=== PATIENT | male | born 1950 | race African-American/Black ===

== ENCOUNTER → 2018-07-29 | Outpatient (CLI) | payer MEDICARE ==
--- NOTE | 2018-07-29 20:59 | XCELERA REPORT ---
[address] [address] Transthoracic Echocardiogram Report Name: ALISTAIR JONES I Age: 68 yrs Gender: Male : 1950 Patient Status: Outpatient Patient Location: [facility] Study Date: 07/29/2018 12:52 PM Height: 71 in Weight: 250 lb BSA: 2.3 m2 Procedure: A two-dimensional transthoracic echocardiogram with color flow and Doppler was performed. The study was technically limited with all images being suboptimal in quality. Reason For Study: CHF History: CHF. Ordering Physician: LAURA FAIRCHILD Performed By: Stacey Mann Interpretation Summary The left ventricle is normal in size. There is normal left ventricular wall thickness. LV EF is Greater than 65% The left ventricular ejection fraction is within normal limits. Doppler measurements suggest normal left ventricular diastolic function The left ventricular wall motion is normal. There is no thrombus. No defenite ASD , VSD ,o PFO seen. Grossly normal size and function. The right atrium is normal. The left atrium is mildly dilated. There is no evidence of mitral valve prolapse. There is no vegetation seen on the mitral valve. There is no mitral valve stenosis. There is no mitral regurgitation noted. There is no aortic valvular vegetation. There is no aortic valve stenosis There is no LVOT obstruction. No aortic regurgitation is present. There is no tricuspid stenosis. No tricuspid regurgitation. Unable to clculate RVSP due to lack of TR jet. There is no pulmonic valvular stenosis. There is no pulmonic valvular regurgitation. The aortic root is normal size. There is no pericardial effusion. MMode/2D Measurements & Calculations RVDd: 2.7 cm LVIDd: 4.7 cm FS: 37.4 % Ao root diam: 2.6 cm IVSd: 1.0 cm LVIDs: 2.9 cm EDV(Teich): 102.7 ml Ao root area: 5.2 cm2 LVPWd: 1.0 cm ESV(Teich): 33.4 ml LA dimension: 4.2 cm EF(Teich): 67.4 % Doppler Measurements & Calculations MV E max marjorie: MV P1/2t max marjorie: Ao V2 max: LV V1 max P.5 cm/sec 80.6 cm/sec 143.5 cm/sec 5.4 mmHg MV A max marjorie: MV P1/2t: 63.9 msec Ao max PG: LV V1 max: 71.3 cm/sec MVA(P1/2t): 3.4 cm2 8.2 mmHg 115.7 cm/sec MV E/A: 1.1 MV dec slope: 369.3 cm/sec2 MV dec time: 0.21 sec PA V2 max: MV P1/2t-pr_phl: 119.0 cm/sec 63.9 msec PA max P.7 mmHg Left Ventricle The left ventricle is normal in size. There is normal left ventricular wall thickness. LV EF is Greater than 65%. The left ventricular ejection fraction is within normal limits. Doppler measurements suggest normal left ventricular diastolic function. The left ventricular wall motion is normal. There is no thrombus. No defenite ASD , VSD ,o PFO seen. Right Ventricle Grossly normal size and function. Atria The right atrium is normal. The left atrium is mildly dilated. Mitral Valve There is no evidence of mitral valve prolapse. There is no vegetation seen on the mitral valve. There is no mitral valve stenosis. There is no mitral regurgitation noted. Aortic Valve There is no aortic valvular vegetation. There is no aortic valve stenosis. There is no LVOT obstruction. No aortic regurgitation is present. Tricuspid Valve There is no tricuspid stenosis. No tricuspid regurgitation. Unable to clculate RVSP due to lack of TR jet. Pulmonic Valve There is no pulmonic valvular stenosis. There is no pulmonic valvular regurgitation. Great Vessels The aortic root is normal size. Effusions There is no pericardial effusion. : LAURA FAIRCHILD > Abril Davila
== END ==
LOC: SP 13:19
PROVIDERS: ATTEND Family Medicine
DX: I50.31 Acute diastolic (congestive) heart failure (principal)
CPT/HCPCS: 93306

== ENCOUNTER → 2018-08-18 | Outpatient (CLI) | payer MEDICARE ==
--- NOTE | 2018-08-18 15:45 | RADIOLOGY REPORT (SQ) ---
EXAM DESCRIPTION: U/S RETROPERITON (RENAL/AORTA) COMPLETED DATE/TIME: 08/18/2018 3:20 pm REASON FOR STUDY: R33.8 OTHER RETENTION OF URINE N18.3 CHRONIC KIDNEY DISEASE, STAGE 3 (MODER R33.8 OTHER RETENTION OF URINE N18.3 CHRONIC KIDNEY DISEASE, STAGE 3 (MODERATE) COMPARISON: None. TECHNIQUE: Dynamic and static grayscale images acquired of the kidneys and bladder and recorded on P ACS. Additional selected color Doppler and spectral images recorded. LIMITATIONS: None. FINDINGS: RIGHT KIDNEY: Normal size, 10.5 cm in length. Normal echogenicity. No solid or suspicious masses. No hydronephrosis. No calcifications. LEFT KIDNEY: Normal size, 10 cm in length. Normal echogenicity. No solid or suspicious masses. 1.5 cm left parapelvic cyst. No hydronephrosis. No calcifications. BLADDER: No masses. OTHER FINDINGS: No other significant finding. IMPRESSION: NORMAL RENAL AND BLADDER ULTRASOUND. TECHNICAL DOCUMENTATION: JOB ID: [id number] [employer]- All Rights Reserved Reading location - IP/workstation name: [email or web address]
== END ==
LOC: RAD 14:04
PROVIDERS: ATTEND Family Medicine
DX: N18.3 Chronic kidney disease, stage 3 (moderate) (principal); R33.8 Other retention of urine
CPT/HCPCS: 76770

== ENCOUNTER → 2019-01-10 | Outpatient (CLI) | payer MEDICARE ==
[2019-01-10 11:11] LABS: URINE CREATININE 115.5 mg/dL (22-328)
[2019-01-10 11:28] LABS: CREATININE 1.84 mg/dL (0.52-1.25)
[2019-01-10 13:16] LABS: 24 HOUR URINE PROTEIN RESULT 11803 mg/day (42-225)
== END ==
LOC: OD 09:10
PROVIDERS: ATTEND Internal Medicine Nephrology
DX: R80.9 Proteinuria, unspecified (principal)
CPT/HCPCS: 82575; 84156

== ENCOUNTER → 2019-01-21 | Outpatient (CLI) | payer MEDICARE | LOC: OD 08:13 | PROVIDERS: ATTEND Internal Medicine Nephrology | DX: Z79.01 Long term (current) use of anticoagulants (principal); Z79.899 Other long term (current) drug therapy | CPT/HCPCS: 36415; 85610 ==

== ENCOUNTER → 2019-02-03 | Outpatient (CLI) | payer MEDICARE ==
[2019-02-03 10:37] LABS: ALBUMIN 2.6 g/dL (3.5-5.0); ANION GAP 6 (5-19); BLOOD UREA NITROGEN 101 mg/dL (7-20); CALCIUM 8.1 mg/dL (8.4-10.2); CARBON DIOXIDE 31 mmol/L (22-30); CHLORIDE 102 mmol/L (98-107); GLUCOSE 99 mg/dL (75-110); PHOSPHORUS 3.5 mg/dL (2.5-4.5); POTASSIUM 3.3 mmol/L (3.6-5.0)
== END ==
LOC: OD 09:45
PROVIDERS: ATTEND Internal Medicine Nephrology
DX: N18.3 Chronic kidney disease, stage 3 (moderate) (principal)
CPT/HCPCS: 36415; 80069

== ENCOUNTER → 2019-02-07 | Outpatient (CLI) | payer MEDICARE ==
[2019-02-07 13:36] LABS: ALBUMIN 2.7 g/dL (3.5-5.0); BLOOD UREA NITROGEN 100 mg/dL (7-20); CALCIUM 8.5 mg/dL (8.4-10.2); GLUCOSE 102 mg/dL (75-110); PHOSPHORUS 4.2 mg/dL (2.5-4.5); POTASSIUM 4.1 mmol/L (3.6-5.0)
[2019-02-07 13:41] LABS: ANION GAP 6 (5-19); CARBON DIOXIDE 31 mmol/L (22-30); CHLORIDE 102 mmol/L (98-107)
== END ==
LOC: OD 11:57
PROVIDERS: ATTEND Internal Medicine Nephrology
DX: N18.3 Chronic kidney disease, stage 3 (moderate) (principal); R80.9 Proteinuria, unspecified; Z79.899 Other long term (current) drug therapy
CPT/HCPCS: 36415; 80069; 83735

== ENCOUNTER → 2019-02-15 | Outpatient (CLI) | payer MEDICARE ==
[2019-02-15 16:48] LABS: ABSOLUTE LYMPHOCYTES (AUTO) 0.5 10^3/uL (0.5-4.7); ABSOLUTE MONOCYTES (AUTO) 0.1 10^3/uL (0.1-1.4); ABSOLUTE NEUT (AUTO) 9.1 10^3/uL (1.7-8.2); BASOPHILS % (AUTO) 0.1 % (0-2); HEMATOCRIT 32.9 % (37.9-51.0); LYMPHOCYTES % (AUTO) 5.6 % (13-45); MEAN CORPUSCULAR HEMOGLOBIN 29.6 pg (27.0-33.4); MEAN CORPUSCULAR HGB CONC 33.5 g/dL (32.0-36.0); MEAN CORPUSCULAR VOLUME 88 fl (80-97); MONOCYTES % (AUTO) 1.3 % (3-13); PLATELET COUNT 154 10^3/uL (150-450); RED BLOOD COUNT 3.74 10^6/uL (4.35-5.55); RED CELL DISTRIBUTION WIDTH 15.3 % (11.5-14.0); TOTAL CELLS COUNTED % (AUTO) 100 %; WHITE BLOOD COUNT 9.7 10^3/uL (4.0-10.5)
[2019-02-15 17:02] LABS: ALBUMIN 2.8 g/dL (3.5-5.0); ALKALINE PHOSPHATASE 84 U/L (38-126); ANION GAP 8 (5-19); ASPARTATE AMINO TRANSFERASE 18 U/L (17-59); BILIRUBIN,TOTAL 0.3 mg/dL (0.2-1.3); BLOOD UREA NITROGEN 101 mg/dL (7-20); CALCIUM 8.5 mg/dL (8.4-10.2); CARBON DIOXIDE 27 mmol/L (22-30); CHLORIDE 104 mmol/L (98-107); GLUCOSE 112 mg/dL (75-110); PHOSPHORUS 5.4 mg/dL (2.5-4.5); POTASSIUM 5.2 mmol/L (3.6-5.0); TOTAL PROTEIN 5.6 g/dL (6.3-8.2)
== END ==
LOC: OD 15:42
PROVIDERS: ATTEND Internal Medicine Nephrology
DX: N18.3 Chronic kidney disease, stage 3 (moderate) (principal); Z79.899 Other long term (current) drug therapy
CPT/HCPCS: 36415; 80069; 80076; 85025

== ENCOUNTER → 2019-03-10 | Outpatient (CLI) | payer MEDICARE ==
[2019-03-10 11:18] LABS: APPEARANCE,URINE CLEAR; BILIRUBIN,URINE NEGATIVE (NEGATIVE); COLOR,URINE STRAW; GLUCOSE, URINE NEGATIVE (NEGATIVE); KETONES,URINE NEGATIVE (NEGATIVE); LEUKOCYTE ESTERASE,URINE NEGATIVE (NEGATIVE); NITRITE,URINE NEGATIVE (NEGATIVE); PROTEIN,URINE >=500 mg/dL (NEGATIVE); URINE SPECIFIC GRAVITY 1.012; UROBILINOGEN,URINE NEGATIVE mg/dL (<2.0)
[2019-03-10 11:19] LABS: HEMATOCRIT 30.6 % (37.9-51.0); HEMOGLOBIN 10.4 g/dL (13.5-17.0); MEAN CORPUSCULAR HEMOGLOBIN 30.5 pg (27.0-33.4); MEAN CORPUSCULAR HGB CONC 34.1 g/dL (32.0-36.0); MEAN CORPUSCULAR VOLUME 89 fl (80-97); PLATELET COUNT 194 10^3/uL (150-450); RED BLOOD COUNT 3.42 10^6/uL (4.35-5.55); RED CELL DISTRIBUTION WIDTH 15.6 % (11.5-14.0); WHITE BLOOD COUNT 8.4 10^3/uL (4.0-10.5)
[2019-03-10 11:39] LABS: IRON(TIBC) 80.1 ug/dL (49-181)
[2019-03-10 11:49] LABS: ABSOLUTE LYMPHOCYTES# (MANUAL) 0.3 10^3/uL (0.5-4.7); ABSOLUTE MONOCYTES # (MANUAL) 0.3 10^3/uL (0.1-1.4); BASOPHILS % (MANUAL) 0 % (0-2); EOSINOPHILS % (MANUAL) 0 % (0-6); LYMPHOCYTES % (MANUAL) 4 % (13-45); MONOCYTES % (MANUAL) 4 % (3-13); SEGMENTED NEUTROPHILS % (MAN) 92 % (42-78); TOTAL CELLS COUNTED 100
[2019-03-10 11:53] LABS: ANISOCYTOSIS SLIGHT; PLATELET COMMENT ADEQUATE; PLATELET LARGE PRESENT; TOXIC GRANULATION 1+
== END ==
LOC: OD 10:23
PROVIDERS: ATTEND Internal Medicine Nephrology
DX: N18.3 Chronic kidney disease, stage 3 (moderate) (principal); D64.9 Anemia, unspecified
CPT/HCPCS: 36415; 81001; 82728; 83540; 83550; 83735; 85025

== ENCOUNTER → 2019-03-28 | Outpatient (CLI) | payer MEDICARE ==
[2019-03-28 12:46] LABS: ANION GAP 5 (5-19); BLOOD UREA NITROGEN 80 mg/dL (7-20); CALCIUM 8.3 mg/dL (8.4-10.2); CARBON DIOXIDE 19 mmol/L (22-30); CHLORIDE 115 mmol/L (98-107); GLUCOSE 150 mg/dL (75-110); POTASSIUM 5.8 mmol/L (3.6-5.0)
== END ==
LOC: OD 11:11
PROVIDERS: ATTEND Internal Medicine Nephrology
DX: N18.3 Chronic kidney disease, stage 3 (moderate) (principal)
CPT/HCPCS: 36415; 80048

== ENCOUNTER → 2019-04-04 | Outpatient (CLI) | payer MEDICARE ==
[2019-04-04 13:33] LABS: HEMATOCRIT 25.5 % (37.9-51.0); HEMOGLOBIN 8.5 g/dL (13.5-17.0); MEAN CORPUSCULAR HEMOGLOBIN 30.3 pg (27.0-33.4); MEAN CORPUSCULAR HGB CONC 33.5 g/dL (32.0-36.0); MEAN CORPUSCULAR VOLUME 91 fl (80-97); PLATELET COUNT 212 10^3/uL (150-450); RED BLOOD COUNT 2.81 10^6/uL (4.35-5.55); RED CELL DISTRIBUTION WIDTH 15.8 % (11.5-14.0); WHITE BLOOD COUNT 5.4 10^3/uL (4.0-10.5)
[2019-04-04 13:41] LABS: APPEARANCE,URINE CLEAR; BILIRUBIN,URINE NEGATIVE (NEGATIVE); COLOR,URINE YELLOW; GLUCOSE, URINE 50 mg/dL (NEGATIVE); KETONES,URINE NEGATIVE (NEGATIVE); LEUKOCYTE ESTERASE,URINE NEGATIVE (NEGATIVE); NITRITE,URINE NEGATIVE (NEGATIVE); PROTEIN,URINE >=500 mg/dL (NEGATIVE); UROBILINOGEN,URINE NEGATIVE mg/dL (<2.0)
[2019-04-04 13:50] LABS: ALBUMIN 2.3 g/dL (3.5-5.0); ALKALINE PHOSPHATASE 61 U/L (38-126); ASPARTATE AMINO TRANSFERASE 21 U/L (17-59); BLOOD UREA NITROGEN 50 mg/dL (7-20); CALCIUM 7.7 mg/dL (8.4-10.2); CARBON DIOXIDE 24 mmol/L (22-30); GLUCOSE 144 mg/dL (75-110); POTASSIUM 4.5 mmol/L (3.6-5.0); TOTAL PROTEIN 4.6 g/dL (6.3-8.2)
[2019-04-04 13:55] LABS: BILIRUBIN,TOTAL < 0.1 mg/dL (0.2-1.3); CHLORIDE 111 mmol/L (98-107)
[2019-04-04 14:00] LABS: ANION GAP 3 (5-19)
[2019-04-04 14:30] LABS: ABSOLUTE MONOCYTES # (MANUAL) 0.5 10^3/uL (0.1-1.4); BAND NEUTROPHILS % (MANUAL) 1 % (3-5); BASOPHILS % (MANUAL) 0 % (0-2); EOSINOPHILS % (MANUAL) 0 % (0-6); LYMPHOCYTES % (MANUAL) 19 % (13-45); MONOCYTES % (MANUAL) 10 % (3-13); SEGMENTED NEUTROPHILS % (MAN) 70 % (42-78); TOTAL CELLS COUNTED 100
[2019-04-04 14:31] LABS: ANISOCYTOSIS SLIGHT; PLATELET COMMENT ADEQUATE; TOXIC GRANULATION SLIGHT
[2019-04-04 15:15] LABS: UR PRO/CREAT RATIO RESULT 11.7 mg/mg (0.0-0.2)
[2019-04-04 17:09] LABS: IRON(TIBC) 33.9 ug/dL (49-181)
== END ==
LOC: OD 12:26
PROVIDERS: ATTEND Internal Medicine Nephrology
DX: N18.4 Chronic kidney disease, stage 4 (severe) (principal); D63.1 Anemia in chronic kidney disease
CPT/HCPCS: 36415; 80053; 81001; 82570; 82728; 83540; 83550; 84156; 85025

== ENCOUNTER 2019-05-03 15:03 | Emergency (ER) | payer MEDICARE ==
--- NOTE | 2019-05-03 15:34 | ER Document Report ---
ED Medical Screen (RME) - General Stated Complaint: ABNORMAL LABWORK - DR REFERRED Time Seen by Provider: 05/03/19 15:26 Primary Care Provider: Justin BUSTAMANTE MD [Primary Care Provider] - Follow up as needed Mode of Arrival: Ambulatory Information source: Patient Notes: Patient reports having syncopal episode x2 3 days ago. Patient had outpatient lab work done yesterday per his primary doctor and was told that his hemoglobin is low and that he needs a blood transfusion. 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 Patien t denies any abnormal bleeding or bruising. I have greeted and performed a rapid initial assessment of this patient. A comprehensive ED assessment and evaluation of the patient, analysis of test res ults and completion of the medical decision making process will be conducted by additional ED providers. TRAVEL OUTSIDE OF THE [place] IN LAST 30 DAYS: No - Related Data Allergies/Adverse Reactions: No Known Allergies Allergy (Verified 05/03/19 15:26) Physical Exam - Vital signs Vitals: Temp Pulse Resp BP Pulse Ox 98.2 F 72 16 127/74 H 96 05/03/19 15:20 05/03/19 15:20 05/03/19 15:20 05/03/19 15:20 05/03/19 15:20 - General General appearance: Appears well, Alert In distress: None Course - Vital Signs Vital signs: Temp Pulse Resp BP Pulse Ox 98.2 F 72 16 127/74 H 96 05/03/19 15:20 05/03/19 15:20 05/03/19 15:20 05/03/19 15:20 05/03/19 15:20 Doctor's Discharge - Discharge Referrals: Justin BUSTAMANTE MD [Primary Care Provider] - Follow up as needed
[2019-05-03 16:04] LABS: ABSOLUTE EOSINOPHILS # (AUTO) 0.1 10^3/uL (0.0-0.6); ABSOLUTE LYMPHOCYTES (AUTO) 0.4 10^3/uL (0.5-4.7); ABSOLUTE MONOCYTES (AUTO) 0.8 10^3/uL (0.1-1.4); ABSOLUTE NEUT (AUTO) 2.7 10^3/uL (1.7-8.2); BASOPHILS % (AUTO) 1.2 % (0-2); EOSINOPHILS % (AUTO) 1.8 % (0-6); HEMATOCRIT 23.9 % (37.9-51.0); HEMOGLOBIN 8.4 g/dL (13.5-17.0); LYMPHOCYTES % (AUTO) 9.4 % (13-45); MEAN CORPUSCULAR HEMOGLOBIN 32.3 pg (27.0-33.4); MEAN CORPUSCULAR HGB CONC 34.9 g/dL (32.0-36.0); MEAN CORPUSCULAR VOLUME 92 fl (80-97); MONOCYTES % (AUTO) 19.1 % (3-13); PLATELET COUNT 239 10^3/uL (150-450); RED BLOOD COUNT 2.59 10^6/uL (4.35-5.55); RED CELL DISTRIBUTION WIDTH 16.9 % (11.5-14.0); SEGMENTED NEUTROPHILS % (AUTO) 68.5 % (42-78); TOTAL CELLS COUNTED % (AUTO) 100 %
[2019-05-03 16:28] LABS: ALBUMIN 3.1 g/dL (3.5-5.0); ALKALINE PHOSPHATASE 84 U/L (38-126); ANION GAP 9 (5-19); ASPARTATE AMINO TRANSFERASE 26 U/L (17-59); BILIRUBIN,DIRECT 0.3 mg/dL (0.0-0.4); BILIRUBIN,TOTAL 0.4 mg/dL (0.2-1.3); BLOOD UREA NITROGEN 49 mg/dL (7-20); CALCIUM 8.5 mg/dL (8.4-10.2); CARBON DIOXIDE 26 mmol/L (22-30); CHLORIDE 106 mmol/L (98-107); GLUCOSE 100 mg/dL (75-110); POTASSIUM 3.6 mmol/L (3.6-5.0); TOTAL PROTEIN 6.1 g/dL (6.3-8.2)
[2019-05-03] MEDS ORDERED: NORMAL SALINE 250 ML IV PRN (17:31)
[2019-05-03] MEDS ORDERED: EPOETIN ALFA-EPBX 40,000 UNIT/ML VIAL (NON-ESRD) SUBCUT STA (17:32)
--- NOTE | 2019-05-03 17:41 | ER Document Report ---
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 He is followed by the spring fitter helper Dr. Fraser. He is being treated alternating monthly doses of steroids and chemoth erapy medications. Baseline chronic kidney disease. Patient had an episode on Thursday, 3 days ago, where he was walking at a service when he started to feel hot, warm, lightheaded, and had a syncopal episode. He did not hit his head. Patient states he has had 1 similar episode in the past. Patient currently denies any and all chest pain, lightheadedness, dizziness, abdominal pain, weakness or numbness. He denies any black or bloody stools. He went to see his primary care physician who sent the patient here for further evaluation secondary to a hemoglobin level that was low compared to previous in January. ROS: See HPI All other review of systems reviewed and otherwise negative Reviewed vital signs and nursing note as charted by RN. PHYSICAL EXAM: CONSTITUTIONAL: Alert and oriented and responds appropriately to questions. Well-appearing; well-nourished HEAD: Normocephalic; atraumatic EYES: PERRL; Conjunctivae clear, sclerae minimally pale ENT: Normal nose; no rhinorrhea; moist mucous membranes; pharynx without lesions noted NECK: Supple without meningismus; non-tender; no cervical lymphadenopathy, no masses CARD: Regular rate and rhythm; no murmurs; symmetric distal pulses RESP: Normal chest excursion without splinting or tachypnea; breath sounds clear and equal bilaterally; no wheezes, no rhonchi, no rales ABD/GI: Normal bowel sounds; non-distended; soft, non-tender; no palpable organomegaly or masses GI/: Patient has a Hemoccult negative stool BACK: The back appears normal and is non-tender to palpation EXT: Normal ROM in all joints; non-tender to palpation; bilateral 2+ pitting edema SKIN: No acute lesions noted NEURO: CN 2-12 intact; 5/5 bilateral upper and lower extremity strength with sensation intact to light touch PSYCH: The patient's mood and manner are appropriate. Grooming and personal hygiene are appropriate. TRAVEL OUTSIDE OF THE [place] IN LAST 30 DAYS: No - Related Data Allergies/Adverse Reactions: No Known Allergies Allergy (Verified 05/03/19 15:26) Past Medical History - General Information source: Patient - Social History Smoking Status: Former Smoker Family History: Reviewed & Not Pertinent Patient has suicidal ideation: No Patient has homicidal ideation: No Physical Exam - Vital signs Vitals: Temp Pulse Resp BP Pulse Ox 98.2 F 72 16 127/74 H 96 05/03/19 15:20 05/03/19 15:20 05/03/19 15:20 05/03/19 15:20 05/03/19 15:20 Course - Re-evaluation Re-evalutation: Given the above history and physical I did call Dr. Merrill and speak to him directly the primary care physician. We have reviewed the patient's labs. Patient's hemoglobin appears to be about the same from 1 month ago. Patient's creatinine is better than it was previously. Dr. Merrill would like me to give 2 units of blood in the emergency department as well as an Epogen shot. I have discussed the dosing with pharmacy and this is been ordered subcutaneously. I will also touch base with the patient's spring fitter helper. Dr. Merrill would like me to decrease the patient's Lasix from 120 mg twice daily to 120 mg in the morning and 80 at night. EKG shows heart of 66, normal sinus rhythm, normal axis, no ST elevation or depression. 05/03/19 17:36 I have called the blood bank and we will irradiate the blood. Patient should be safe to go home after this blood has been provided. Patient and the primary care physician are comfortable with this decision. I have talked to the spring fitter helper who is also aware. I have explained the risks and benefits of blood to the patient and he understands these. He has accepted the blood. - Vital Signs Vital signs: Temp Pulse Resp BP Pulse Ox 98.2 F 72 16 127/74 H 96 05/03/19 15:20 05/03/19 15:20 05/03/19 15:20 05/03/19 15:20 05/03/19 15:20 - Laboratory Result Diagrams: 05/03/19 15:40 03/03/20 15:40 Laboratory results interpreted by me: 05/03/19 05/03/19 05/03/19 15:40 15:40 15:40 RBC 2.59 L Hgb 8.4 L Hct 23.9 L RDW 16.9 H Lymph % (Auto) 9.4 L Forrest % (Auto) 19.1 H Absolute Lymphs (auto) 0.4 L BUN 49 H Creatinine 1.50 H Est GFR ( Amer) 56 L Est GFR (MDRD) Non-Af 46 L Total Protein 6.1 L Albumin 3.1 L Crossmatch See Detail Discharge - Discharge Clinical Impression: Acute anemia Syncope Qualifiers: Syncope type: unspecified Qualified Code(s): R55 - Syncope and collapse Condition: Good Disposition: HOME, SELF-CARE Additional Instructions: Come back immediately with any lightheadedness, dizziness, chest pain, palpitations, shortness of breath, weakness or numbness, or any other acute problems. Please make sure that you follow-up with your primary care physician Dr. Merrill and your spring fitter helper. Instead of taking 340 mg tablets twice a day, please take 3 tablets in the morning and 2 in the afternoon. This is according to Dr. Merrill's instructions. Referrals: Justin FRASER MD [ACTIVE STAFF] - Follow up as needed
--- NOTE | 2019-05-03 18:54 | EKG REPORT ---
SEVERITY:- BORDERLINE ECG - SINUS RHYTHM TALL R WAVE IN V2, CONSIDER RVH OR PMI : Confirmed by: Bakari Mcmillan MD 03-May-2019 18:54:07
[2019-05-04 07:59] VITALS: BP 114/64
== END 2019-05-04 08:00 | disposition home or self-care (01) ==
LOC: ER 15:03
DX: N18.9 Chronic kidney disease, unspecified (principal); D63.1 Anemia in chronic kidney disease; R55 Syncope and collapse; M35.9 Systemic involvement of connective tissue, unspecified; Z79.82 Long term (current) use of aspirin; Z79.899 Other long term (current) drug therapy; Z87.891 Personal history of nicotine dependence
CPT/HCPCS: 93005; 99283; 96372; 86900; 86901; 36415; 36430; 86850; 85025; 80053; 86920; 93010; P9016; Q5106

== ENCOUNTER → 2019-05-09 | Outpatient (CLI) | payer MEDICARE ==
[2019-05-09 12:54] LABS: APPEARANCE,URINE SLIGHTLY-CLOUDY; BILIRUBIN,URINE NEGATIVE (NEGATIVE); COLOR,URINE YELLOW; GLUCOSE, URINE NEGATIVE (NEGATIVE); KETONES,URINE NEGATIVE (NEGATIVE); LEUKOCYTE ESTERASE,URINE NEGATIVE (NEGATIVE); NITRITE,URINE NEGATIVE (NEGATIVE); PROTEIN,URINE >=500 mg/dL (NEGATIVE); UROBILINOGEN,URINE NEGATIVE mg/dL (<2.0)
[2019-05-09 12:56] LABS: ABSOLUTE EOSINOPHILS # (AUTO) 0.2 10^3/uL (0.0-0.6); ABSOLUTE LYMPHOCYTES (AUTO) 0.2 10^3/uL (0.5-4.7); ABSOLUTE MONOCYTES (AUTO) 0.6 10^3/uL (0.1-1.4); ABSOLUTE NEUT (AUTO) 2.9 10^3/uL (1.7-8.2); BASOPHILS % (AUTO) 1.2 % (0-2); HEMATOCRIT 31.6 % (37.9-51.0); HEMOGLOBIN 10.8 g/dL (13.5-17.0); LYMPHOCYTES % (AUTO) 5.7 % (13-45); MEAN CORPUSCULAR HEMOGLOBIN 31.6 pg (27.0-33.4); MEAN CORPUSCULAR HGB CONC 34.3 g/dL (32.0-36.0); MEAN CORPUSCULAR VOLUME 92 fl (80-97); MONOCYTES % (AUTO) 15.1 % (3-13); PLATELET COUNT 178 10^3/uL (150-450); RED BLOOD COUNT 3.43 10^6/uL (4.35-5.55); RED CELL DISTRIBUTION WIDTH 16.7 % (11.5-14.0); TOTAL CELLS COUNTED % (AUTO) 100 %
[2019-05-09 13:05] LABS: ALKALINE PHOSPHATASE 78 U/L (38-126); ANION GAP 7 (5-19); ASPARTATE AMINO TRANSFERASE 20 U/L (17-59); BILIRUBIN,DIRECT 0.2 mg/dL (0.0-0.4); BILIRUBIN,TOTAL 0.4 mg/dL (0.2-1.3); BLOOD UREA NITROGEN 45 mg/dL (7-20); CALCIUM 8.7 mg/dL (8.4-10.2); CARBON DIOXIDE 28 mmol/L (22-30); CHLORIDE 106 mmol/L (98-107); GLUCOSE 146 mg/dL (75-110); POTASSIUM 3.5 mmol/L (3.6-5.0)
[2019-05-09 15:13] LABS: UR PRO/CREAT RATIO RESULT 4.2 mg/mg (0.0-0.2); URINE CREATININE 275.8 mg/dL (22-328); URINE PROTEIN 1154.4 mg/dL (<12)
== END ==
LOC: OD 12:06
PROVIDERS: ATTEND Internal Medicine Nephrology
DX: N18.3 Chronic kidney disease, stage 3 (moderate) (principal)
CPT/HCPCS: 36415; 80053; 81001; 82570; 83735; 84156; 85025

== ENCOUNTER → 2019-05-13 | Outpatient (CLI) | payer MEDICARE ==
[2019-05-13 12:20] LABS: ANION GAP 5 (5-19); BLOOD UREA NITROGEN 37 mg/dL (7-20); CALCIUM 8.3 mg/dL (8.4-10.2); CARBON DIOXIDE 28 mmol/L (22-30); CHLORIDE 111 mmol/L (98-107); GLUCOSE 112 mg/dL (75-110); POTASSIUM 4.1 mmol/L (3.6-5.0)
== END ==
LOC: OD 11:05
PROVIDERS: ATTEND Internal Medicine Nephrology
DX: N18.3 Chronic kidney disease, stage 3 (moderate) (principal); E87.6 Hypokalemia
CPT/HCPCS: 36415; 80048; 83735

== ENCOUNTER → 2019-08-17 | Outpatient (CLI) | payer MEDICARE ==
[2019-08-17 07:37] LABS: ABSOLUTE LYMPHOCYTES (AUTO) 0.5 10^3/uL (0.5-4.7); ABSOLUTE MONOCYTES (AUTO) 0.3 10^3/uL (0.1-1.4); ABSOLUTE NEUT (AUTO) 6.9 10^3/uL (1.7-8.2); BASOPHILS % (AUTO) 0.5 % (0-2); EOSINOPHILS % (AUTO) 0.1 % (0-6); HEMATOCRIT 33.3 % (37.9-51.0); HEMOGLOBIN 11.4 g/dL (13.5-17.0); LYMPHOCYTES % (AUTO) 6.3 % (13-45); MEAN CORPUSCULAR HEMOGLOBIN 32.8 pg (27.0-33.4); MEAN CORPUSCULAR HGB CONC 34.1 g/dL (32.0-36.0); MEAN CORPUSCULAR VOLUME 96 fl (80-97); MONOCYTES % (AUTO) 3.4 % (3-13); PLATELET COUNT 155 10^3/uL (150-450); RED BLOOD COUNT 3.47 10^6/uL (4.35-5.55); RED CELL DISTRIBUTION WIDTH 16.9 % (11.5-14.0); SEGMENTED NEUTROPHILS % (AUTO) 89.7 % (42-78); TOTAL CELLS COUNTED % (AUTO) 100 %; WHITE BLOOD COUNT 7.6 10^3/uL (4.0-10.5)
[2019-08-17 07:53] LABS: ALBUMIN 3.5 g/dL (3.5-5.0); ALKALINE PHOSPHATASE 92 U/L (38-126); ANION GAP 5 (5-19); ASPARTATE AMINO TRANSFERASE 21 U/L (17-59); BILIRUBIN,TOTAL 0.3 mg/dL (0.2-1.3); BLOOD UREA NITROGEN 83 mg/dL (7-20); CALCIUM 8.9 mg/dL (8.4-10.2); CARBON DIOXIDE 30 mmol/L (22-30); CHLORIDE 102 mmol/L (98-107); GLUCOSE 143 mg/dL (75-110); IRON(TIBC) 79.2 ug/dL (49-181); PHOSPHORUS 4.2 mg/dL (2.5-4.5); POTASSIUM 4.2 mmol/L (3.6-5.0)
[2019-08-17 08:06] LABS: APPEARANCE,URINE CLEAR; BILIRUBIN,URINE NEGATIVE (NEGATIVE); COLOR,URINE STRAW; GLUCOSE, URINE NEGATIVE (NEGATIVE); KETONES,URINE NEGATIVE (NEGATIVE); LEUKOCYTE ESTERASE,URINE NEGATIVE (NEGATIVE); NITRITE,URINE NEGATIVE (NEGATIVE); PROTEIN,URINE 100 mg/dL (NEGATIVE); URINE SPECIFIC GRAVITY 1.009; UROBILINOGEN,URINE NEGATIVE mg/dL (<2.0)
[2019-08-17 09:08] LABS: UR PRO/CREAT RATIO RESULT 3.2 mg/mg (0.0-0.2); URINE CREATININE 38.5 mg/dL (22-328); URINE PROTEIN 122.4 mg/dL (<12)
== END ==
LOC: OD 07:06
PROVIDERS: ATTEND Internal Medicine Nephrology
DX: N18.3 Chronic kidney disease, stage 3 (moderate) (principal); D63.1 Anemia in chronic kidney disease; N05.9 Unspecified nephritic syndrome with unspecified morphologic changes; N06.2 Isolated proteinuria with diffuse membranous glomerulonephritis
CPT/HCPCS: 36415; 80053; 81001; 82570; 82728; 83540; 83550; 83735; 83970; 84100; 84156; 85025

== ENCOUNTER → 2019-11-04 | Outpatient (CLI) | payer MEDICARE ==
[2019-11-04 10:17] LABS: HEMATOCRIT 25.8 % (37.9-51.0); HEMOGLOBIN 8.9 g/dL (13.5-17.0); MEAN CORPUSCULAR HEMOGLOBIN 34.2 pg (27.0-33.4); MEAN CORPUSCULAR HGB CONC 34.4 g/dL (32.0-36.0); MEAN CORPUSCULAR VOLUME 100 fl (80-97); PLATELET COUNT 207 10^3/uL (150-450); RED BLOOD COUNT 2.59 10^6/uL (4.35-5.55); RED CELL DISTRIBUTION WIDTH 16.5 % (11.5-14.0)
[2019-11-04 10:32] LABS: IRON(TIBC) 51.7 ug/dL (49-181)
[2019-11-04 10:50] LABS: WHITE BLOOD COUNT 1.6 10^3/uL (4.0-10.5)
[2019-11-04 10:55] LABS: ABSOLUTE LYMPHOCYTES# (MANUAL) 0.1 10^3/uL (0.5-4.7); ABSOLUTE MONOCYTES # (MANUAL) 0.4 10^3/uL (0.1-1.4); BASOPHILS % (MANUAL) 2 % (0-2); EOSINOPHILS % (MANUAL) 2 % (0-6); LYMPHOCYTES % (MANUAL) 6 % (13-45); NUCLEATED RED BLOOD CELLS 10 /100 WBC (0); SEGMENTED NEUTROPHILS % (MAN) 62 % (42-78); TOTAL CELLS COUNTED 50
[2019-11-04 10:58] LABS: ANISOCYTOSIS 1+; MONOCYTES % (MANUAL) 28 % (3-13); PLATELET COMMENT ADEQUATE
[2019-11-04 10:59] LABS: PLATELET CLUMPS PRESENT
== END ==
LOC: OD 09:23
PROVIDERS: ATTEND Internal Medicine Nephrology
DX: N18.4 Chronic kidney disease, stage 4 (severe) (principal); D63.1 Anemia in chronic kidney disease; D70.9 Neutropenia, unspecified
CPT/HCPCS: 36415; 82728; 83540; 83550; 85025

== ENCOUNTER 2020-03-16 13:30 | Inpatient (IN) | payer MEDICARE ==
[2020-03-16] MEDS ORDERED: NORMAL SALINE 1000 ML 500 ML IV ONE ×2 (14:36→21:30)
--- NOTE | 2020-03-16 14:40 | ER Document Report ---
ED Medical Screen (RME) - General Chief Complaint: Other Stated Complaint: KIDNEY ISSUE Time Seen by Provider: 03/16/20 14:27 Primary Care Provider: Justin BUSTAMANTE MD [Primary Care Provider] - Follow up as needed TRAVEL OUTSIDE OF THE [place] IN LAST 30 DAYS: No - HPI Patient complains to provider of: Told to come to the ER by his doctor Notes: 03/16/20 14:37 Patient here with complaints of being told to come to the ER for admission by his doctor. He states that he had routine labs drawn yesterday and received a call from his doctor today that his labs were out of whack. He states that he thinks that he was told his creatinine was elevated. I do not have any recent labs in the system. In reviewing his previous labs he has been noted to have some mild renal insufficiency as well as anemia. He denies any chest pain or shortness of breath. He does report that his blood pressure has been running a little low for the last several weeks. He checks it every day and his systolics have been running anywhere from the 90s to the 100s. He states that he is on 2 blood pressure medications. States today when he gets up too quick, he feels l ightheaded. He denies any other specific complaints at this moment. Exam: Nontoxic, no distress. Lungs clear and equal throughout. Heart sounds normal. No peripheral edema. Repeat blood pressure in triage shows a systolic blood pressure in the 110'S. An initial examination was made on the patient as part of the triage process, and it was determined a more comprehensive evaluation was necessary. Initial orders were placed and patient was transferred to another provider in the ED who assumed care and finished evaluation and plan. - Related Data Allergies/Adverse Reactions: No Known Allergies Allergy (Verified 05/03/19 15:26) Physical Exam - Vital signs Vitals: Temp Pulse Resp BP Pulse Ox 98.0 F 102 H 20 87/61 L 99 03/16/20 13:43 03/16/20 13:43 03/16/20 13:43 03/16/20 13:43 03/16/20 13:43 Course - Vital Signs Vital signs: Temp Pulse Resp BP Pulse Ox 98.0 F 102 H 20 87/61 L 99 03/16/20 13:43 03/16/20 13:43 03/16/20 13:43 03/16/20 13:43 03/16/20 13:43 Doctor's Discharge - Discharge Referrals: Justin BUSTAMANTE MD [Primary Care Provider] - Follow up as needed
[2020-03-16 15:14] LABS: ABSOLUTE LYMPHOCYTES (AUTO) 0.5 10^3/uL (0.5-4.7); ABSOLUTE MONOCYTES (AUTO) 0.5 10^3/uL (0.1-1.4); ABSOLUTE NEUT (AUTO) 5.7 10^3/uL (1.7-8.2); BASOPHILS % (AUTO) 0.4 % (0-2); EOSINOPHILS % (AUTO) 0.3 % (0-6); HEMATOCRIT 27.1 % (37.9-51.0); HEMOGLOBIN 9.3 g/dL (13.5-17.0); LYMPHOCYTES % (AUTO) 7.3 % (13-45); MEAN CORPUSCULAR HEMOGLOBIN 31.8 pg (27.0-33.4); MEAN CORPUSCULAR HGB CONC 34.4 g/dL (32.0-36.0); MEAN CORPUSCULAR VOLUME 93 fl (80-97); MONOCYTES % (AUTO) 6.8 % (3-13); PLATELET COUNT 161 10^3/uL (150-450); RED BLOOD COUNT 2.94 10^6/uL (4.35-5.55); RED CELL DISTRIBUTION WIDTH 15.2 % (11.5-14.0); SEGMENTED NEUTROPHILS % (AUTO) 85.2 % (42-78); TOTAL CELLS COUNTED % (AUTO) 100 %; WHITE BLOOD COUNT 6.7 10^3/uL (4.0-10.5)
--- NOTE | 2020-03-16 15:27 | RADIOLOGY REPORT (SQ) ---
EXAM DESCRIPTION: CHEST 2 VIEWS IMAGES COMPLETED DATE/TIME: 03/16/2020 3:06 pm REASON FOR STUDY: weakness, hypotension COMPARISON: None. EXAM PARAMETERS: NUMBER OF VIEWS: two views TECHNIQUE: Digital Frontal and Lateral radiographic views of the chest acquired. RADIATION DOSE: NA LIMITATIONS: none FINDINGS: LUNGS AND PLEURA: No opacities, masses or pneumothorax. No pleural effusion. Eventration of the left hemidiaphragm. MEDIASTINUM AND HILAR STRUCTURES: No masses or contour abnormalities. HEART AND VASCULAR STRUCTURES: Heart normal size. No evidence for failure. BONES: No acute findings. HARDWARE: None in the chest. OTHER: No other significant finding. IMPRESSION: NO ACUTE RADIOGRAPHIC FINDING IN THE CHEST. TECHNICAL DOCUMENTATION: JOB ID: [id number] 2010 [employer]- All Rights Reserved Reading location - IP/workstation name: [email or web address]
[2020-03-16 15:38] LABS: APPEARANCE,URINE CLEAR; BILIRUBIN,URINE NEGATIVE (NEGATIVE); COLOR,URINE YELLOW; GLUCOSE, URINE NEGATIVE (NEGATIVE); KETONES,URINE NEGATIVE (NEGATIVE); LEUKOCYTE ESTERASE,URINE NEGATIVE (NEGATIVE); NITRITE,URINE NEGATIVE (NEGATIVE); PROTEIN,URINE 100 mg/dL (NEGATIVE); URINE SPECIFIC GRAVITY 1.012; UROBILINOGEN,URINE NEGATIVE mg/dL (<2.0)
[2020-03-16 15:43] LABS: ALBUMIN 3.7 g/dL (3.5-5.0); ALKALINE PHOSPHATASE 37 U/L (38-126); ANION GAP 15 (5-19); ASPARTATE AMINO TRANSFERASE 20 U/L (17-59); BILIRUBIN,DIRECT 0.1 mg/dL (0.0-0.4); BILIRUBIN,TOTAL 0.4 mg/dL (0.2-1.3); CALCIUM 9.4 mg/dL (8.4-10.2); CARBON DIOXIDE 22 mmol/L (22-30); CHLORIDE 99 mmol/L (98-107); GLUCOSE 145 mg/dL (75-110); POTASSIUM 5.2 mmol/L (3.6-5.0); TOTAL PROTEIN 6.1 g/dL (6.3-8.2)
[2020-03-16 15:50] LABS: BLOOD UREA NITROGEN 172 mg/dL (7-20)
[2020-03-16] MEDS ORDERED: CALCIUM GLUCONATE 1000 MG/10 ML INJ IV ONE ×2 (16:45→21:30)
[2020-03-16] MEDS ORDERED: INSULIN REG, HUMAN 100 UNIT/ML 3 ML VIAL (PYX) IV ONE ×2 (16:46→21:30)
[2020-03-16] MEDS ORDERED: DEXTROSE 50%-WATER 25 GM/50 ML DISP.SYRIN IV ONE ×2 (16:46→21:30)
--- NOTE | 2020-03-16 19:34 | EKG REPORT ---
SEVERITY:- NORMAL ECG - SINUS RHYTHM : Confirmed by: Abril Davila MD 16-Mar-2020 19:33:17
--- NOTE | 2020-03-16 22:39 | ER Document Report ---
ED General - General Chief Complaint: Abnormal Lab Results Stated Complaint: KIDNEY ISSUE Time Seen by Provider: 03/16/20 14:27 Notes: Patient is a 70-year-old male who comes emergency department for chief complaint of abnormal labs. Patient received a call earlier today telling him his kidney function was abnormal. Patient states that he has felt generally low energy and occasionally lightheaded but he denies any other symptoms including abdominal pain, vomiting, shortness of breath. He is able to urinate without difficulty. His blood pressure has been borderline low at home when he checks it. Past medical history of hypertension, anemia, nephrotic syndrome on mycophenolate and steroids, and he follows with tester waste disposal leakage Dr. Fraser. Patient denies bloody stools. TRAVEL OUTSIDE OF THE [place] IN LAST 30 DAYS: No - Related Data Allergies/Adverse Reactions: No Known Allergies Allergy (Verified 05/03/19 15:26) Past Medical History - General Information source: Patient - Social History Smoking Status: Never Smoker Frequency of alcohol use: None Drug Abuse: None Lives with: Family Family History: Reviewed & Not Pertinent Patient has homicidal ideation: No - Past Medical History Cardiac Medical History: Reports: Hx Hypercholesterolemia, Hx Hypertension Review of Systems - Review of Systems Constitutional: See HPI EENT: No symptoms reported Cardiovascular: No symptoms reported Respiratory: No symptoms reported Gastrointestinal: No symptoms reported Genitourinary: No symptoms reported Male Genitourinary: No symptoms reported Musculoskeletal: No symptoms reported Skin: No symptoms reported Hematologic/Lymphatic: No symptoms reported Neurological/Psychological: No symptoms reported Physical Exam - Vital signs Vitals: Temp Pulse Resp BP Pulse Ox 98.0 F 102 H 20 87/61 L 99 03/16/20 13:43 03/16/20 13:43 03/16/20 13:43 03/16/20 13:43 03/16/20 13:43 - Notes Notes: GENERAL: Alert, interacts well. No acute distress. HEAD: Normocephalic, atraumatic. EYES: Pupils equal, round, and reactive to light. Extraocular movements intact. ENT: Oral mucosa dry, tongue midline. Oropharynx unremarkable. Airway patent. NECK: Full range of motion. Supple. Trachea midline. No lymphadenopathy. LUNGS: Clear to auscultation bilaterally, no wheezes, rales, or rhonchi. No respiratory distress. Non-tender chest wall. HEART: Regular rate and rhythm. No murmur ABDOMEN: Soft, non-tender. Non-distended. Bowel sounds present in all 4 quadrants. GENITOURINARY: Deferred EXTREMITIES: Moves all 4 extremities spontaneously. No edema, normal radial and dorsalis pedis pulses bilaterally. No cyanosis. BACK: no cervical, thoracic, lumbar midline tenderness. No saddle anesthesia, normal distal neurovascular exam. Moves all extremities in full range of motion. NEUROLOGICAL: Alert and oriented x3. Normal speech. Cranial nerves II through XII grossly intact. Strength 5/5 in all extremities. PSYCH: Normal affect, normal mood. SKIN: Warm, dry, normal turgor. No rashes or lesions noted. Course - Re-evaluation Re-evalutation: On exam patient is alert and well-appearing and he has no complaints. He is able to make urine fortunately. Vital signs unremarkable. CBC shows mild anemia, normocytic. Otherwise unremarkable. Chemistry shows BUN of 172, creatinine greater than 7. This is very significantly changed from prior when patient was around 1.7. Based on the BUN elevation this could be prerenal, however patient also has a history of nephrotic syndrome and he does have proteinuria. Patient is already on steroids. Patient given IV fluids. Patient also has a potassium of 5.2, he is already received prophylactic treatment from triage because of patient's very long wait, this was secondary to patient being treated during the COVID-19 pandemic. Patient will require admission for acute renal failure, hyperkalemia, possible nephrotic syndrome. Patient was also initially mildly hypotensive but this resolved after IV fluids. We do not have nephrology chairperson anesthesiology this time over the weekend. I discussed details with patient and family, will discuss with hospitalist for admission. Discussed with Dr. Abel, patient accepted to telemetry full admission. - Vital Signs Vital signs: Temp Pulse Resp BP Pulse Ox 98.0 F 95 18 132/78 H 99 03/17/20 02:31 03/17/20 03:14 03/17/20 03:14 03/17/20 03:14 03/17/20 03:14 - Laboratory Results Result Diagrams: 03/17/20 05:02 03/17/20 05:02 Laboratory Results Interpreted: 03/16/20 03/16/20 03/16/20 14:48 14:48 14:48 RBC 2.94 L Hgb 9.3 L Hct 27.1 L RDW 15.2 H Lymph % (Auto) 7.3 L Seg Neutrophils % 85.2 H Sodium 135.5 L Potassium 5.2 H BUN 172 H Creatinine 7.23 H Est GFR ( Amer) 9 L Est GFR (MDRD) Non-Af 8 L Glucose 145 H POC Glucose Alkaline Phosphatase 37 L Total Protein 6.1 L Urine Protein 100 H Protein/Creatinin Ratio Urine Total Protein 03/16/20 03/16/20 03/16/20 21:33 22:17 23:32 RBC Hgb Hct RDW Lymph % (Auto) Seg Neutrophils % Sodium Potassium BUN Creatinine Est GFR ( Amer) Est GFR (MDRD) Non-Af Glucose POC Glucose 147 H 139 H Alkaline Phosphatase Total Protein Urine Protein Protein/Creatinin Ratio 0.5 H Urine Total Protein 30.2 H Critical Laboratory Results Reviewed: No Critical Results - Radiology Results Critical Radiology Results Reviewed: No Critical Results - EKG Interpretation by Me Additional EKG results interpreted by me: EKG shows sinus rhythm at a rate of 89, normal axis, no T wave inversions or T- segment changes in consecutive leads Discharge - Discharge Clinical Impression: Acute kidney injury superimposed on CKD, Hyperkalemia, Volume depletion Hypotension Qualifiers: Hypotension type: unspecified hypotension type Qualified Code(s): I95.9 - Hypotension, unspecified Condition: Stable Disposition: ADMITTED INPATIENT Admitting Provider: Unit Admitted: Telemetry
[2020-03-16] MEDS ORDERED: NORMAL SALINE 1000 ML 1,000 ML IV ONE (22:44)
[2020-03-17] MEDS ORDERED: ACETAMINOPHEN 325 MG TABLET PO PRN (00:05)
[2020-03-17] MEDS ORDERED: ONDANSETRON HCL INJ/PF 4 MG/2 ML SDV IV PRN (00:05)
--- NOTE | 2020-03-17 00:47 | PDOC H&P ---
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 Patient states that he has been feeling easily fatigued and tired with exertion for the past 1 year since he was started on therapy for nephrotic syndrome but he denies any new change in his symptoms in the past few days or weeks. He follow-ups with nephrology every 2 weeks and on a lab drawn yesterday as part of a routine evaluation his kidney function was noticed to be much worse than his previous studies. He feels lightheaded when he gets up quickly from a sitting position. He denies any nausea, vomiting, metallic taste, chest pain, shortness of breath, palpitation, change in his mentation, pruritus. He states that he has been noticing he has been having decreased urine output for the past few weeks despite being adherent with his diuretic medications. He denies any fever, chills, dysuria, frequency, urgency, hematuria or diarrhea. He has not noticed any significant change in his weight recently and denies any leg swelling. He states that his face has been puffy for the past year after he was started on steroid but he has not noticed any change recently. On arrival to the ED patient was hypotensive with a blood pressure of 87/61 and the oropharynx were dry. BUN/creatinine was elevated at 172/7.23 and his last known kidney function was in August 2019 where he had BUN/creatinine of 83/1.97. Patient was given 2 L of IV bolus at the ED and blood pressure has improved to 120/64. Patient appears to have no acute indication for dialysis at this point and will be admitted to medicine floor for further monitoring. Past Medical History Cardiac Medical History: Reports: Hyperlipidema, Hypertension Social History Information Source: Patient Lives with: Family Smoking Status: Never Smoker Frequency of Alcohol Use: None Hx Recreational Drug Use: No Drugs: None - Advance Directive Resuscitation Status: Full Code Family History Family History: Reviewed & Not Pertinent Parental Family History Reviewed: Yes Children Family History Reviewed: Yes Sibling(s) Family History Reviewed.: Yes Medication/Allergy Home Medications: Allopurinol [Zyloprim 300 mg Tablet] 300 mg PO DAILY 03/16/20 Aspirin [Aspirin 81 mg Chewable Tablet] 81 mg PO DAILY 03/16/20 Bumetanide [Bumex 1 mg Tablet] 1 tab PO BID 03/16/20 Calcitriol 0.5 mcg PO DAILY 03/16/20 Ergocalciferol (Vitamin D2) [Vitamin D2] 50,000 unit PO Q7D 03/16/20 Lisinopril [Zestril] 5 mg PO BID 03/16/20 Metolazone [Zaroxolyn 5 Mg Tablet] 5 mg PO DAILY 03/16/20 Metoprolol Succinate [Toprol Xl 25 mg Tab.sr] 25 mg PO BID 03/16/20 Mycophenolate Mofetil 500 mg PO BID 03/16/20 Omeprazole 40 mg PO DAILY 03/16/20 Potassium Chloride 10 meq PO DAILY 03/16/20 Prednisone 10 mg PO TID 03/16/20 Sulfamethoxazole/Trimethoprim [Bactrim Ds Tablet] 1 each PO ASDIR 03/16/20 Allergies/Adverse Reactions: No Known Allergies Allergy (Verified 05/03/19 15:26) Review of Systems Constitutional: ABSENT: fever(s), headache(s), weight gain, weight loss Eyes: ABSENT: visual disturbances Ears: ABSENT: hearing changes Nose, Mouth, and Throat: ABSENT: headache(s), mouth pain, sore throat Cardiovascular: ABSENT: chest pain, dyspnea on exertion, edema, orthropnea, p alpitations Respiratory: ABSENT: cough, hemoptysis Gastrointestinal: ABSENT: abdominal pain, constipation, diarrhea, hematemesis, hematochezia, nausea, vomiting Genitourinary: ABSENT: dysuria, hematuria Musculoskeletal: ABSENT: joint swelling Integumentary: ABSENT: rash, wounds Neurological: ABSENT: abnormal gait, abnormal speech, confusion, dizziness, focal weakness, syncope Psychiatric: ABSENT: anxiety, depression, homidical ideation, suicidal ideation Endocrine: ABSENT: cold intolerance, heat intolerance, polydipsia, polyuria Hematologic/Lymphatic: ABSENT: easy bruising Physical Exam Vital Signs: Temp Pulse Resp BP Pulse Ox 98.3 F 88 18 120/64 98 03/16/20 18:21 03/16/20 18:21 03/16/20 18:21 03/16/20 18:21 03/16/20 18:21 Intake & Output 03/15/20 03/16/20 03/17/20 06:59 06:59 06:59 Intake Total 500 Balance 500 Weight 116.1 kg Additional comments: GENERAL APPEARANCE: Alert and oriented x3, in no acute distress. HEENT: Normocephalic and atraumatic. No scleral icterus. Dry oral mucosa NECK: Supple. No lymphadenopathy or tenderness. No JVD CHEST: Symmetric. Nontender to palpation. LUNGS: Clear with good air entry bilaterally. No wheezing or crackles HEART: Regular rate and rhythm with normal S1 and S2. No murmurs, gallops, or rubs. ABDOMEN: soft, active bowel sounds, no direct or rebound tenderness. No organomegaly detected. No CVA tenderness EXTREMITIES: No cyanosis, clubbing, or edema. MUSCULOSKELETAL: No deformity, atrophy or swelling noted PSYCHIATRIC: Recent and remote memory is intact. Appropriate mood and affect. SKIN: Warm, dry, and well perfused. No lesions or rashes are noted. NEUROLOGIC: No focal sensory or motor deficits are noted. Results Laboratory Results: 03/16/20 14:48 03/16/20 14:48 03/16/20 03/16/20 03/16/20 14:48 14:48 14:48 WBC 6.7 RBC 2.94 L Hgb 9.3 L Hct 27.1 L MCV 93 MCH 31.8 MCHC 34.4 RDW 15.2 H Plt Count 161 Seg Neutrophils % 85.2 H Sodium 135.5 L Potassium 5.2 H Chloride 99 Carbon Dioxide 22 Anion Gap 15 BUN 172 H Creatinine 7.23 H Est GFR ( Amer) 9 L Glucose 145 H Calcium 9.4 Magnesium 1.8 Total Bilirubin 0.4 AST 20 Alkaline Phosphatase 37 L Total Protein 6.1 L Albumin 3.7 Urine Color YELLOW Urine Appearance CLEAR Urine pH 5.0 Ur Specific [place] 1.012 Urine Protein 100 H Urine Glucose (UA) NEGATIVE Urine Ketones NEGATIVE Urine Blood NEGATIVE Urine Nitrite NEGATIVE Ur Leukocyte Esterase NEGATIVE Urine WBC (Auto) 1 Urine RBC (Auto) 0 Blood Type Antibody Screen 03/16/20 20:55 WBC RBC Hgb Hct MCV MCH MCHC RDW Plt Count Seg Neutrophils % Sodium Potassium Chloride Carbon Dioxide Anion Gap BUN Creatinine Est GFR ( Amer) Glucose Calcium Magnesium Total Bilirubin AST Alkaline Phosphatase Total Protein Albumin Urine Color Urine Appearance Urine pH Ur Specific [place] Urine Protein Urine Glucose (UA) Urine Ketones Urine Blood Urine Nitrite Ur Leukocyte Esterase Urine WBC (Auto) Urine RBC (Auto) Blood Type B POSITIVE Antibody Screen NEGATIVE Impressions: Chest X-Ray 03/16/20 14:36 IMPRESSION: NO ACUTE RADIOGRAPHIC FINDING IN THE CHEST. Assessment and Plan - Diagnosis (1) Acute kidney injury superimposed on CKD Is this a current diagnosis for this admission?: Yes Plan: Patient was called in by primary care for abnormal lab results Denies any new symptoms like nausea, vomiting, metallic taste, pruritus He is alert and oriented x4, has no tremors, pericardial friction rub or any sign of volume overload Patient was hypotensive on presentation and had dry oral mucosa Likely due acute kidney injury superimposed on CKD from volume depletion Vs progression of membranous nephropathy BUN/creatinine was 172/7.23 from a baseline creatinine of 1.97 in August 2019 Had mild hyperkalemia of 5.2 but no significant acidosis and other electrolytes are within the normal limit EKG was nonremarkable Patient was hydrated with 2 L IV fluid at the ED Continue hydrating him with normal saline at 100 mL/h We will hold diuretics for now Continue monitoring renal indicis closely Avoid nephrotoxic's and renally dose medication Obtain spot urine protein to creatinine ratio (2) Hyperkalemia Is this a current diagnosis for this admission?: Yes Plan: Serum potassium was 5.2 presentation to the ED EKG showed sinus rhythm with no ST changes or QRS widening Patient was given insulin with dextrose at the ED Continue monitoring serum electrolytes closely on telemetry monitoring (3) Volume depletion Is this a current diagnosis for this admission?: Yes Plan: Patient had a BP of 87/61 on presentation Heart dry oral mucosa Has been hydrated with 2 L of IV fluid at the ED Continue gentle hydration with normal saline at 100 mL/h Continue closely monitoring vital signs and renal indicis (4) Hypotension Qualifiers: Hypotension type: unspecified hypotension type Qualified Code(s): I95.9 - Hypotension, unspecified Is this a current diagnosis for this admission?: Yes Plan: Continue management as stated above under volume depletion (5) Membranous glomerulonephritis Is this a current diagnosis for this admission?: Yes Plan: Patient was diagnosed with membranous nephropathy a year ago after he presented with signs of nephrotic syndrome Currently following up with nephrology Current worsening of kidney function likely prerenal from volume depletion versus progression of MN Patient is adherent with his immunosuppressant medications Continue mycophenolate and prednisone Continue monitoring renal indicis Follow-up with spot urine protein to creatinine ratio If no improvement with hydration, this could be progression of underlying MN and may need renal biopsy Will consider obtaining antiphospholipase A2 if no clinical improvement Continue follow-up with nephrology (6) Anemia Is this a current diagnosis for this admission?: Yes Plan: Anemia of CKD Hemoglobin was 9.3 on this presentation with an MCV of 88 Continue follow-up and treatment with nephrology as outpatient (7) Hypertension Is this a current diagnosis for this admission?: Yes Plan: Patient currently presents with hypotension We will hold antihypertensive medication and diuretic for now (8) Obesity (BMI 30-39.9) Is this a current diagnosis for this admission?: Yes - Time Time Spent with patient: 35 or more minutes Total Critical Time (Minutes): 50 Medications reviewed and adjusted accordingly: Yes Anticipated Discharge Disposition: Home, Self Care Anticipated Discharge Timeframe: within 72 hours - Inpatient Certification Based on my medical assessment, after consideration of the patient's comorbidities, presenting symptoms, or acuity I expect that the services needed warrant INPATIENT care.: Yes I certify that my determination is in accordance with my understanding of Medicare's requirements for reasonable and necessary INPATIENT services [42 CFR 412.3e].: Yes Medical Necessity: Significant Comorbidiites Make Outpatient Treatment Too Risky, Need Close Monitoring Due to Risk of Patient Decompensation, Need For IV Fluids, Need For Continuous Telemetry Monitoring, Risk of Complication if Not Cared For in Hospital Post Hospital Care: D/C or Transfer Summary
[2020-03-17] MEDS ORDERED: MYCOPHENOLATE MOFETIL 250 MG CAPSULE PO ONE (01:00)
[2020-03-17] MEDS ORDERED: MYCOPHENOLATE MOFETIL 250 MG CAPSULE PO SCH (01:00)
[2020-03-17 01:24] LABS: UR PRO/CREAT RATIO RESULT 0.5 mg/mg (0.0-0.2); URINE CREATININE 62.1 mg/dL (22-328); URINE PROTEIN 30.2 mg/dL (<12)
[2020-03-17] MEDS ORDERED: MYCOPHENOLATE MOFETIL 250 MG CAPSULE ONE (02:13)
[2020-03-17 03:13] LABS: URINE CREATININE 61.4 mg/dL (22-328)
[2020-03-17] MEDS: NORMAL SALINE 1000 ML 1,000 ML IV PRN ×2 (03:39→21:52)
[2020-03-17 05:44] LABS: ABSOLUTE LYMPHOCYTES (AUTO) 0.3 10^3/uL (0.5-4.7); ABSOLUTE MONOCYTES (AUTO) 0.3 10^3/uL (0.1-1.4); ABSOLUTE NEUT (AUTO) 4.8 10^3/uL (1.7-8.2); BASOPHILS % (AUTO) 0.3 % (0-2); HEMOGLOBIN 8.6 g/dL (13.5-17.0); LYMPHOCYTES % (AUTO) 6.3 % (13-45); MEAN CORPUSCULAR HGB CONC 34.5 g/dL (32.0-36.0); MEAN CORPUSCULAR VOLUME 93 fl (80-97); MONOCYTES % (AUTO) 5.9 % (3-13); PLATELET COUNT 141 10^3/uL (150-450); RED CELL DISTRIBUTION WIDTH 15.2 % (11.5-14.0); SEGMENTED NEUTROPHILS % (AUTO) 87.5 % (42-78); TOTAL CELLS COUNTED % (AUTO) 100 %; WHITE BLOOD COUNT 5.5 10^3/uL (4.0-10.5)
[2020-03-17 06:01] LABS: ALBUMIN 3.6 g/dL (3.5-5.0); ALKALINE PHOSPHATASE 35 U/L (38-126); ANION GAP 13 (5-19); ASPARTATE AMINO TRANSFERASE 19 U/L (17-59); BILIRUBIN,DIRECT 0.2 mg/dL (0.0-0.4); BILIRUBIN,TOTAL 0.4 mg/dL (0.2-1.3); CALCIUM 9.6 mg/dL (8.4-10.2); CARBON DIOXIDE 20 mmol/L (22-30); CHLORIDE 104 mmol/L (98-107); GLUCOSE 149 mg/dL (75-110); POTASSIUM 5.1 mmol/L (3.6-5.0); TOTAL PROTEIN 5.9 g/dL (6.3-8.2)
[2020-03-17 06:12] LABS: BLOOD UREA NITROGEN 159 mg/dL (7-20)
[2020-03-17] MEDS ORDERED: ALLOPURINOL 300 MG TABLET PO SCH (10:00)
--- NOTE | 2020-03-17 10:35 | RADIOLOGY REPORT (SQ) ---
EXAM DESCRIPTION: U/S RETROPERITON LTD IMAGES COMPLETED DATE/TIME: 03/17/2020 6:58 am REASON FOR STUDY: Acute kidney injury, rule out obstructive uropathy COMPARISON: Bilateral renal ultrasound 08/18/2018 TECHNIQUE: Dynamic and static grayscale images acquired of the kidneys and bladder and recorded on P ACS. Additional selected color Doppler and spectral images recorded. LIMITATIONS: None. FINDINGS: RIGHT KIDNEY: 9 cm in length with grossly Normal echogenicity. No solid or suspicious masses. No hydronephrosis. No calcifications. LEFT KIDNEY: 10 cm in length with grossly Normal echogenicity. No solid or suspicious masses. 2 cm parapelvic cyst, 2 cm left upper pole renal cortical cyst. No hydronephrosis. No calcification s. BLADDER: No masses. OTHER FINDINGS: No other significant finding. IMPRESSION: NORMAL RENAL AND BLADDER ULTRASOUND. TECHNICAL DOCUMENTATION: JOB ID: [id number] [employer]- All Rights Reserved Reading location - IP/workstation name: [id number]
[2020-03-17] MEDS: HEPARIN SOD (PORCINE) 5,000 UNIT/ML 1 ML VIAL SUBCUT SCH ×2 (10:52→21:47)
[2020-03-17] MEDS: ASPIRIN 81 MG TABLET, CHEWABLE PO SCH (10:59)
[2020-03-17] MEDS: PREDNISONE 10 MG TABLET PO SCH ×3 (10:59→17:08)
[2020-03-17] MEDS: MYCOPHENOLATE MOFETIL 250 MG CAPSULE PO SCH ×2 (10:59→17:08)
--- NOTE | 2020-03-17 14:23 | PDOC PROGRESS REPORT ---
Subjective Date:: 03/17/20 Subjective:: Patient admitted overnight due to kidney failure. He does have underlying membr anous glomerulonephritis. Patient states he has been no change in his regimen. He has had no change in symptoms. He normally gets his renal function checked every other week and he said the last 1 prior to this current 1 was apparently of no concern. Reason For Visit: ACUTE KIDNEY INJURY ON CKD,MILD HYPERKALEMIA Physical Exam Vital Signs: Temp Pulse Resp BP Pulse Ox 97.7 F 90 17 99/55 L 100 03/17/20 11:49 03/17/20 11:49 03/17/20 11:49 03/17/20 11:49 03/17/20 11:49 Intake & Output 03/16/20 03/17/20 03/18/20 06:59 06:59 06:59 Intake Total 1500 675 Balance 1500 675 Weight 116.1 kg General appearance: PRESENT: no acute distress, obese, well-developed, well- nourished Head exam: PRESENT: atraumatic, normocephalic Eye exam: PRESENT: conjunctiva pink, EOMI, PERRLA. ABSENT: scleral icterus Ear exam: PRESENT: normal external ear exam Mouth exam: PRESENT: moist, tongue midline Neck exam: ABSENT: carotid bruit, JVD, lymphadenopathy, thyromegaly Respiratory exam: PRESENT: clear to auscultation felicity. ABSENT: rales, rhonchi, wheezes Cardiovascular exam: PRESENT: RRR, +S1, +S2. ABSENT: diastolic murmur, rubs, systolic murmur Pulses: PRESENT: normal dorsalis pedis pul Vascular exam: PRESENT: normal capillary refill GI/Abdominal exam: PRESENT: normal bowel sounds, soft. ABSENT: distended, guarding, mass, organolmegaly, rebound, tenderness Rectal exam: PRESENT: deferred Extremities exam: PRESENT: full ROM. ABSENT: calf tenderness, clubbing, pedal edema Neurological exam: PRESENT: alert, awake, oriented to person, oriented to place, oriented to time, oriented to situation, CN II-XII grossly intact. ABSENT: motor sensory deficit Psychiatric exam: PRESENT: appropriate affect, normal mood. ABSENT: homicidal ideation, suicidal ideation Skin exam: PRESENT: dry, intact, warm. ABSENT: cyanosis, rash Results Laboratory Results: 03/17/20 05:02 03/17/20 05:02 03/16/20 03/16/20 03/16/20 14:48 14:48 14:48 WBC 6.7 RBC 2.94 L Hgb 9.3 L Hct 27.1 L MCV 93 MCH 31.8 MCHC 34.4 RDW 15.2 H Plt Count 161 Seg Neutrophils % 85.2 H Sodium 135.5 L Potassium 5.2 H Chloride 99 Carbon Dioxide 22 Anion Gap 15 BUN 172 H Creatinine 7.23 H Est GFR ( Amer) 9 L Glucose 145 H Calcium 9.4 Magnesium 1.8 Total Bilirubin 0.4 AST 20 Alkaline Phosphatase 37 L Total Protein 6.1 L Albumin 3.7 Urine Color YELLOW Urine Appearance CLEAR Urine pH 5.0 Ur Specific [place] 1.012 Urine Protein 100 H Urine Glucose (UA) NEGATIVE Urine Ketones NEGATIVE Urine Blood NEGATIVE Urine Nitrite NEGATIVE Ur Leukocyte Esterase NEGATIVE Urine WBC (Auto) 1 Urine RBC (Auto) 0 Blood Type Antibody Screen 03/16/20 03/17/20 03/17/20 20:55 05:02 05:02 WBC 5.5 RBC 2.70 L Hgb 8.6 L Hct 25.0 L MCV 93 MCH 32.0 MCHC 34.5 RDW 15.2 H Plt Count 141 L Seg Neutrophils % 87.5 H Sodium 137.4 Potassium 5.1 H Chloride 104 Carbon Dioxide 20 L Anion Gap 13 BUN 159 H Creatinine 5.70 H Est GFR ( Amer) 12 L Glucose 149 H Calcium 9.6 Magnesium Total Bilirubin 0.4 AST 19 Alkaline Phosphatase 35 L Total Protein 5.9 L Albumin 3.6 Urine Color Urine Appearance Urine pH Ur Specific [place] Urine Protein Urine Glucose (UA) Urine Ketones Urine Blood Urine Nitrite Ur Leukocyte Esterase Urine WBC (Auto) Urine RBC (Auto) Blood Type B POSITIVE Antibody Screen NEGATIVE Impressions: Chest X-Ray 03/16/20 14:36 IMPRESSION: NO ACUTE RADIOGRAPHIC FINDING IN THE CHEST. Renal Ultrasound 03/17/20 08:00 IMPRESSION: NORMAL RENAL AND BLADDER ULTRASOUND. Assessment and Plan - Diagnosis (1) Acute kidney injury superimposed on CKD Is this a current diagnosis for this admission?: Yes Plan: Patient was called in by primary care for abnormal lab results Denies any new symptoms like nausea, vomiting, metallic taste, pruritus He is alert and oriented x4, has no tremors, pericardial friction rub or any sign of volume overload Patient was hypotensive on presentation and had dry oral mucosa Likely due acute kidney injury superimposed on CKD from volume depletion Vs progression of membranous nephropathy BUN/creatinine was 172/7.23 from a baseline creatinine of 1.97 in August 2019 Had mild hyperkalemia of 5.2 but no significant acidosis and other electrolytes are within the normal limit EKG was nonremarkable Patient was hydrated with 2 L IV fluid at the ED Continue hydrating him with normal saline at 100 mL/h We will hold diuretics for now Continue monitoring renal indicis closely Avoid nephrotoxic's and renally dose medication Obtain spot urine protein to creatinine ratio (2) Anemia Qualifiers: Anemia type: due to chronic kidney disease Is this a current diagnosis for this admission?: Yes Plan: Anemia of CKD Hemoglobin was 9.3 on this presentation with an MCV of 88 Continue follow-up and treatment with nephrology as outpatient (3) Hyperkalemia Is this a current diagnosis for this admission?: Yes Plan: Serum potassium was 5.2 presentation to the ED EKG showed sinus rhythm with no ST changes or QRS widening Patient was given insulin with dextrose at the ED Continue monitoring serum electrolytes closely on telemetry monitoring (4) Hypertension Is this a current diagnosis for this admission?: Yes Plan: Patient currently presents with hypotension We will hold antihypertensive medication and diuretic for now (5) Hypotension Qualifiers: Hypotension type: unspecified hypotension type Qualified Code(s): I95.9 - Hypotension, unspecified Is this a current diagnosis for this admission?: Yes Plan: Continue management as stated above under volume depletion (6) Membranous glomerulonephritis Is this a current diagnosis for this admission?: Yes Plan: Patient was diagnosed with membranous nephropathy a year ago after he presented with signs of nephrotic syndrome Currently following up with nephrology Current worsening of kidney function likely prerenal from volume depletion versus progression of MN Patient is adherent with his immunosuppressant medications Continue mycophenolate and prednisone Continue monitoring renal indicis Follow-up with spot urine protein to creatinine ratio If no improvement with hydration, this could be progression of underlying MN and may need renal biopsy Will consider obtaining antiphospholipase A2 if no clinical improvement Continue follow-up with nephrology (7) Obesity (BMI 30-39.9) Is this a current diagnosis for this admission?: Yes (8) Volume depletion Is this a current diagnosis for this admission?: Yes Plan: Patient had a BP of 87/61 on presentation Heart dry oral mucosa Has been hydrated with 2 L of IV fluid at the ED Continue gentle hydration with normal saline at 100 mL/h Continue closely monitoring vital signs and renal indicis - Plan Summary Summary: Patient's kidney function is slowly improving. He remains nonoliguric. Is potassium is borderline high. He is not grossly acidotic and he has no overt symptoms of acute kidney failure. At this time I think we can continue to monitor him and treat conservatively. He is CellCept and prednisone of pain continued but he is diuretics as well as lisinopril and allopurinol have been held for now. This is due to his kidney function I will restart him as soon as feasible. - Time Time Spent with patient: 25-34 minutes Medications reviewed and adjusted accordingly: Yes Anticipated Discharge Disposition: Home, Self Care Anticipated Discharge Timeframe: within 72 hours
[2020-03-17] MEDS: METOPROLOL SUCCINATE 25 MG TAB.SR.24H PO SCH (21:48)
[2020-03-18 05:41] LABS: ANION GAP 11 (5-19); CALCIUM 9.7 mg/dL (8.4-10.2); CARBON DIOXIDE 20 mmol/L (22-30); CHLORIDE 110 mmol/L (98-107); GLUCOSE 130 mg/dL (75-110); POTASSIUM 5.1 mmol/L (3.6-5.0)
[2020-03-18 06:18] LABS: BLOOD UREA NITROGEN 118 mg/dL (7-20)
[2020-03-18] MEDS: NORMAL SALINE 1000 ML 1,000 ML IV PRN ×2 (08:18→20:31)
[2020-03-18] MEDS ORDERED: CALCITRIOL 0.5 MCG PO SCH (10:00)
[2020-03-18] MEDS: HEPARIN SOD (PORCINE) 5,000 UNIT/ML 1 ML VIAL SUBCUT SCH (10:25)
[2020-03-18] MEDS: CALCITRIOL 0.25 MCG CAPSULE PO SCH (10:31)
[2020-03-18] MEDS: METOPROLOL SUCCINATE 25 MG TAB.SR.24H PO SCH (10:32)
[2020-03-18] MEDS: MYCOPHENOLATE MOFETIL 250 MG CAPSULE PO SCH ×2 (10:32→18:41)
[2020-03-18] MEDS: PREDNISONE 10 MG TABLET PO SCH ×3 (10:32→18:40)
[2020-03-18] MEDS: ASPIRIN 81 MG TABLET, CHEWABLE PO SCH (10:32)
--- NOTE | 2020-03-18 16:02 | PDOC PROGRESS REPORT ---
Subjective Date:: 03/18/20 Subjective:: Patient admitted overnight due to kidney failure. He does have underlying membr anous glomerulonephritis. Patient states he has been no change in his regimen. He has had no change in symptoms. He normally gets his renal function checked every other week and he said the last 1 prior to this current 1 was apparently of no concern. 03/18 Patient feels well. He continues to make good quality urine. His kidney function is improving. Creatinine is down to 3.5 from 7.2 on admission. He is slightly acidotic remains borderline hyperkalemic. His last labs that I have on file was from August 2019 when his creatinine was 1.97 Reason For Visit: ACUTE KIDNEY INJURY ON CKD,MILD HYPERKALEMIA Physical Exam Vital Signs: Temp Pulse Resp BP Pulse Ox 97.9 F 97 17 120/61 100 03/18/20 10:00 03/18/20 08:03 03/18/20 08:03 03/18/20 08:03 03/18/20 08:03 Intake & Output 03/17/20 03/18/20 03/19/20 06:59 06:59 06:59 Intake Total 1500 2200 1845 Output Total 2450 550 Balance 1500 -250 1295 Weight 116.1 kg 116.1 kg General appearance: PRESENT: no acute distress, well-developed, well-nourished Head exam: PRESENT: atraumatic, normocephalic Eye exam: PRESENT: conjunctiva pink, EOMI, PERRLA. ABSENT: scleral icterus Ear exam: PRESENT: normal external ear exam Mouth exam: PRESENT: moist, tongue midline Neck exam: ABSENT: carotid bruit, JVD, lymphadenopathy, thyromegaly Respiratory exam: PRESENT: clear to auscultation felicity, unlabored. ABSENT: rales, rhonchi, wheezes Cardiovascular exam: PRESENT: RRR, +S1, +S2. ABSENT: diastolic murmur, rubs, systolic murmur Pulses: PRESENT: normal dorsalis pedis pul Vascular exam: PRESENT: normal capillary refill GI/Abdominal exam: PRESENT: normal bowel sounds, soft. ABSENT: distended, guarding, mass, organolmegaly, rebound, tenderness Rectal exam: PRESENT: deferred Extremities exam: PRESENT: full ROM. ABSENT: calf tenderness, clubbing, pedal edema Neurological exam: PRESENT: alert, awake, oriented to person, oriented to place, oriented to time, oriented to situation, CN II-XII grossly intact. ABSENT: motor sensory deficit Psychiatric exam: PRESENT: appropriate affect, normal mood. ABSENT: homicidal ideation, suicidal ideation Skin exam: PRESENT: dry, intact, warm. ABSENT: cyanosis, rash Results Laboratory Results: 03/17/20 05:02 03/18/20 04:56 03/18/20 04:56 Sodium 140.8 Potassium 5.1 H Chloride 110 H Carbon Dioxide 20 L Anion Gap 11 BUN 118 H D Creatinine 3.52 H Est GFR ( Amer) 21 L Glucose 130 H Calcium 9.7 Impressions: Chest X-Ray 03/16/20 14:36 IMPRESSION: NO ACUTE RADIOGRAPHIC FINDING IN THE CHEST. Renal Ultrasound 03/17/20 08:00 IMPRESSION: NORMAL RENAL AND BLADDER ULTRASOUND. Assessment and Plan - Diagnosis (1) Acute kidney injury superimposed on CKD Is this a current diagnosis for this admission?: Yes (2) Anemia Qualifiers: Anemia type: due to chronic kidney disease Is this a current diagnosis for this admission?: Yes (3) Hyperkalemia Is this a current diagnosis for this admission?: Yes (4) Hypertension Is this a current diagnosis for this admission?: Yes (5) Hypotension Qualifiers: Hypotension type: unspecified hypotension type Qualified Code(s): I95.9 - Hypotension, unspecified Is this a current diagnosis for this admission?: Yes (6) Membranous glomerulonephritis Is this a current diagnosis for this admission?: Yes (7) Obesity (BMI 30-39.9) Is this a current diagnosis for this admission?: Yes (8) Volume depletion Is this a current diagnosis for this admission?: Yes - Plan Summary Summary: Patient's kidney function is slowly improving. He remains nonoliguric. Is potassium is borderline high. He is not grossly acidotic and he has no overt symptoms of acute kidney failure. At this time I think we can continue to monitor him and treat conservatively. He is CellCept and prednisone of pain continued but he is diuretics as well as lisinopril and allopurinol have been held for now. This is due to his kidney function I will restart him as soon as feasible. 03/18 Patient's kidney function continues to improve and his electrolytes are acceptable. We will recheck BMP in a.m. It is possible that he can be discharged home if he remains stable with improvement in his kidney function. He can likely be followed up as outpatient - Time Time Spent with patient: 15-24 minutes Medications reviewed and adjusted accordingly: Yes Anticipated Discharge Disposition: Home, Self Care Anticipated Discharge Timeframe: within 24 hours
[2020-03-19] MEDS: HEPARIN SOD (PORCINE) 5,000 UNIT/ML 1 ML VIAL SUBCUT SCH ×2 (00:14→10:18)
[2020-03-19] MEDS: METOPROLOL SUCCINATE 25 MG TAB.SR.24H PO SCH ×2 (00:14→10:25)
[2020-03-19 05:54] LABS: ANION GAP 8 (5-19); CALCIUM 9.8 mg/dL (8.4-10.2); CARBON DIOXIDE 21 mmol/L (22-30); CHLORIDE 112 mmol/L (98-107); GLUCOSE 98 mg/dL (75-110); POTASSIUM 5.2 mmol/L (3.6-5.0)
[2020-03-19 06:22] LABS: BLOOD UREA NITROGEN 82 mg/dL (7-20)
[2020-03-19] MEDS: NORMAL SALINE 1000 ML 1,000 ML IV PRN (07:46)
[2020-03-19] MEDS: MYCOPHENOLATE MOFETIL 250 MG CAPSULE PO SCH (10:24)
[2020-03-19] MEDS: CALCITRIOL 0.25 MCG CAPSULE PO SCH (10:24)
[2020-03-19] MEDS: ASPIRIN 81 MG TABLET, CHEWABLE PO SCH (10:25)
[2020-03-19] MEDS: PREDNISONE 10 MG TABLET PO SCH ×2 (10:25→13:22)
[2020-03-19 12:51] VITALS: BP 130/78
--- NOTE | 2020-03-19 15:37 | PDOC DISCHARGE SUMMARY ---
Impression - Admit/DC Date/PCP Admission Date/Primary Care Provider: 03/17/20 01:01 Justin FRASER MD Discharge Date: 03/19/20 - Discharge Diagnosis (1) Acute kidney injury superimposed on CKD Is this a current diagnosis for this admission?: Yes (2) Anemia Is this a current diagnosis for this admission?: Yes (3) Hyperkalemia Is this a current diagnosis for this admission?: Yes (4) Hypertension Is this a current diagnosis for this admission?: Yes (5) Hypotension Is this a current diagnosis for this admission?: Yes (6) Membranous glomerulonephritis Is this a current diagnosis for this admission?: Yes (7) Obesity (BMI 30-39.9) Is this a current diagnosis for this admission?: Yes (8) Volume depletion Is this a current diagnosis for this admission?: Yes - Assessment Summary: Patient's kidney function is slowly improving. He remains nonoliguric. Is potassium is borderline high. He is not grossly acidotic and he has no overt symptoms of acute kidney failure. At this time I think we can continue to monitor him and treat conservatively. He is CellCept and prednisone of pain continued but he is diuretics as well as lisinopril and allopurinol have been held for now. This is due to his kidney function I will restart him as soon as feasible. 03/18 Patient's kidney function continues to improve and his electrolytes are acceptable. We will recheck BMP in a.m. It is possible that he can be discharged home if he remains stable with improvement in his kidney function. He can likely be followed up as outpatient - Additional Information Resuscitation Status: Full Code Discharge Diet: Cardiac Discharge Activity: Activity As Tolerated Referrals: Justin FRASER MD [Primary Care Provider] - 03/28/20 1:15 pm (Call office 03/20 and obtain blood work (BMP) for 03/22) Home Medications: Allopurinol [Zyloprim 300 mg Tablet] 300 mg PO DAILY 03/16/20 Aspirin [Aspirin 81 mg Chewable Tablet] 81 mg PO DAILY 03/16/20 Bumetanide [Bumex 1 mg Tablet] 2 mg PO QAM 03/16/20 Calcitriol 0.5 mcg PO DAILY 03/16/20 Metolazone [Zaroxolyn 5 mg Tablet] 5 mg PO DAILY 03/16/20 Metoprolol Succinate [Toprol Xl 25 mg Tab.sr] 25 mg PO Q12 03/16/20 Mycophenolate Mofetil 500 mg PO BID 03/16/20 Omeprazole 40 mg PO Q6AM 03/16/20 Prednisone 30 mg PO QAM 03/16/20 Sulfamethoxazole/Trimethoprim [Bactrim Ds Tablet] 1 each PO MOWEFR@1000 03/16/20 Bumetanide [Bumex 1 mg Tablet] 2 mg PO 1400 03/17/20 Ergocalciferol (Vitamin D2) [Drisdol 50,000 unit (1.25MG) Capsule] 50,000 unit PO MO@1000 03/17/20 Lisinopril [Zestril] 10 mg PO DAILY #0 03/19/20 History of Present Illiness History of Present Illness: ALISTAIR JONES I is a 70 year old male Patient presents to the emergency room 2 abnormal labs. Found to have a creatinine of 7.2 with a BUN of 172. Patient denies any symptoms on presentation. He was admitted with acute kidney failure. He does have underlying history of membranous nephropathy and is currently on prednisone and mycophenolate. Hospital Course Hospital Course: patient was admitted with acute on chronic kidney failure. His creatinine was 7.3 with a BUN of 173 on admission. Reviewing his of his labs looks like his baseline creatinine and BUN is about 3 and 83. Patient was also found to be grossly hyperkalemic. Was started on IV fluid hydration. He was not acidotic and did not need dialysis. With judicious fluid management and holding of his diuretics patient's kidney function actually continue to improve. Today his creatinine is at 2.1 8 with a BUN of 82. He has been nonoliguric with a good quality urine. Patient has remained largely asymptomatic while in hospital. Improvement of his kidney function towards his baseline hemodynamic stability patient is being discharged home. He is Bumex continue to be on hold although he has been advised to use 1 as needed if needed until further review by Dr. Ruben diggs. His lisinopril was on hold in hospital but this is been restarted at half dose. 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 He does have underlying history of membranous nephropathy and is currently on prednisone and mycophenolate. Physical Exam Vital Signs: Temp Pulse Resp BP Pulse Ox 98.1 F 83 22 H 130/78 H 98 03/19/20 11:00 03/19/20 11:00 03/19/20 11:00 03/19/20 11:00 03/19/20 11:00 Intake & Output 03/18/20 03/19/20 03/20/20 06:59 06:59 06:59 Intake Total 2200 3735 1500 Output Total 2450 2825 400 Balance -185 185 8820 Weight 116.1 kg 116 kg General appearance: PRESENT: no acute distress, well-developed, well-nourished Head exam: PRESENT: atraumatic, normocephalic Eye exam: PRESENT: conjunctiva pink, EOMI, PERRLA. ABSENT: scleral icterus Ear exam: PRESENT: normal external ear exam Mouth exam: PRESENT: moist, tongue midline Neck exam: ABSENT: carotid bruit, JVD, lymphadenopathy, thyromegaly Respiratory exam: PRESENT: clear to auscultation felicity. ABSENT: rales, rhonchi, wheezes Cardiovascular exam: PRESENT: RRR, +S1, +S2. ABSENT: diastolic murmur, rubs, systolic murmur Pulses: PRESENT: normal dorsalis pedis pul Vascular exam: PRESENT: normal capillary refill GI/Abdominal exam: PRESENT: normal bowel sounds, soft. ABSENT: distended, guarding, mass, organolmegaly, rebound, tenderness Rectal exam: PRESENT: deferred Extremities exam: PRESENT: full ROM. ABSENT: calf tenderness, clubbing, pedal edema Neurological exam: PRESENT: alert, awake, oriented to person, oriented to place, oriented to time, oriented to situation, CN II-XII grossly intact. ABSENT: motor sensory deficit Psychiatric exam: PRESENT: appropriate affect, normal mood. ABSENT: homicidal ideation, suicidal ideation Skin exam: PRESENT: dry, intact, warm. ABSENT: cyanosis, rash Results Laboratory Results: WBC 5.5 10^3/uL (4.0-10.5) 03/17/20 05:02 RBC 2.70 10^6/uL (4.35-5.55) L 03/17/20 05:02 Hgb 8.6 g/dL (13.5-17.0) L 03/17/20 05:02 Hct 25.0 % (37.9-51.0) L 03/17/20 05:02 MCV 93 fl (80-97) 03/17/20 05:02 MCH 32.0 pg (27.0-33.4) 03/17/20 05:02 MCHC 34.5 g/dL (32.0-36.0) 03/17/20 05:02 RDW 15.2 % (11.5-14.0) H 03/17/20 05:02 Plt Count 141 10^3/uL (150-450) L 03/17/20 05:02 Lymph % (Auto) 6.3 % (13-45) L 03/17/20 05:02 [place] % (Auto) 5.9 % (3-13) 03/17/20 05:02 Eos % (Auto) 0.0 % (0-6) 03/17/20 05:02 Baso % (Auto) 0.3 % (0-2) 03/17/20 05:02 Absolute Neuts (auto) 4.8 10^3/uL (1.7-8.2) 03/17/20 05:02 Absolute Lymphs (auto) 0.3 10^3/uL (0.5-4.7) L 03/17/20 05:02 Absolute Monos (auto) 0.3 10^3/uL (0.1-1.4) 03/17/20 05:02 Absolute Eos (auto) 0.0 10^3/uL (0.0-0.6) 03/17/20 05:02 Absolute Basos (auto) 0.0 10^3/uL (0.0-0.2) 03/17/20 05:02 Seg Neutrophils % 87.5 % (42-78) H 03/17/20 05:02 Sodium 140.9 mmol/L (137-145) 03/19/20 04:38 Potassium 5.2 mmol/L (3.6-5.0) H 03/19/20 04:38 Chloride 112 mmol/L (98-107) H 03/19/20 04:38 Carbon Dioxide 21 mmol/L (22-30) L 03/19/20 04:38 Anion Gap 8 (5-19) 03/19/20 04:38 BUN 82 mg/dL (7-20) H D 03/19/20 04:38 Creatinine 2.18 mg/dL (0.52-1.25) H 03/19/20 04:38 Est GFR ( Amer) 36 (>60) L 03/19/20 04:38 Est GFR (MDRD) Non-Af 30 (>60) L 03/19/20 04:38 Glucose 98 mg/dL (75-110) 03/19/20 04:38 POC Glucose 139 mg/dL (70-110) H 03/16/20 23:32 Calcium 9.8 mg/dL (8.4-10.2) 03/19/20 04:38 Magnesium 1.8 mg/dL (1.6-2.3) 03/16/20 14:48 Total Bilirubin 0.4 mg/dL (0.2-1.3) 03/17/20 05:02 Direct Bilirubin 0.2 mg/dL (0.0-0.4) 03/17/20 05:02 Neonat Total Bilirubin Not Reportable 03/17/20 05:02 Neonat Direct Bilirubin Not Reportable 03/17/20 05:02 Neonat Indirect Bili Not Reportable 03/17/20 05:02 AST 19 U/L (17-59) 03/17/20 05:02 ALT 18 U/L (<50) 03/17/20 05:02 Alkaline Phosphatase 35 U/L (38-126) L 03/17/20 05:02 Total Protein 5.9 g/dL (6.3-8.2) L 03/17/20 05:02 Albumin 3.6 g/dL (3.5-5.0) 03/17/20 05:02 Urine Color YELLOW 03/16/20 14:48 Urine Appearance CLEAR 03/16/20 14:48 Urine pH 5.0 (5.0-9.0) 03/16/20 14:48 Ur Specific [place] 1.012 03/16/20 14:48 Urine Protein 100 mg/dL (NEGATIVE) H 03/16/20 14:48 Urine Glucose (UA) NEGATIVE mg/dL (NEGATIVE) 03/16/20 14:48 Urine Ketones NEGATIVE mg/dL (NEGATIVE) 03/16/20 14:48 Urine Blood NEGATIVE (NEGATIVE) 03/16/20 14:48 Urine Nitrite NEGATIVE (NEGATIVE) 03/16/20 14:48 Urine Bilirubin NEGATIVE (NEGATIVE) 03/16/20 14:48 Urine Urobilinogen NEGATIVE mg/dL (<2.0) 03/16/20 14:48 Ur Leukocyte Esterase NEGATIVE (NEGATIVE) 03/16/20 14:48 Urine WBC (Auto) 1 /HPF 03/16/20 14:48 Urine RBC (Auto) 0 /HPF 03/16/20 14:48 U Hyaline Cast (Auto) 4 /LPF 03/16/20 14:48 Urine Bacteria (Auto) TRACE /HPF 03/16/20 14:48 Squamous Epi Cells Auto <1 /HPF 03/16/20 14:48 Urine Mucus (Auto) RARE /LPF 03/16/20 14:48 Urine Creatinine 61.4 mg/dL (22-328) 03/16/20 22:17 Urine Creatinine 62.1 mg/dL (22-328) 03/16/20 22:17 Protein/Creatinin Ratio 0.5 mg/mg (0.0-0.2) H 03/16/20 22:17 Urine Sodium 51 mmol/L (30-90) 03/16/20 22:17 Urine Total Protein 30.2 mg/dL (<12) H 03/16/20 22:17 Urine Ascorbic Acid NEGATIVE (NEGATIVE) 03/16/20 14:48 Blood Type B POSITIVE 03/16/20 20:55 Antibody Screen NEGATIVE 03/16/20 20:55 Impressions: Chest X-Ray 03/16/20 14:36 IMPRESSION: NO ACUTE RADIOGRAPHIC FINDING IN THE CHEST. Renal Ultrasound 03/17/20 08:00 IMPRESSION: NORMAL RENAL AND BLADDER ULTRASOUND. Plan Health Concerns: Follow-up with Dr. Fraser as advised Time Spent: Greater than 30 Minutes Stroke Is this a Stroke Patient?: No Acute Heart Failure Is this a Heart Failure Patient?: No
== END 2020-03-19 13:46 | disposition home or self-care (01) | DRG 684 ==
LOC: ER 13:30 → EH 03-17 01:01 → 4N 03-17 03:09
PROVIDERS: ADMIT Student in an Organized Health Care Education/Training Program; ATTEND Internal Medicine
DX: N17.9 Acute kidney failure, unspecified (principal); D63.1 Anemia in chronic kidney disease; I95.9 Hypotension, unspecified; I12.9 Hypertensive chronic kidney disease with stage 1 through stage 4 chronic kidney disease, or unspecified chronic kidney disease; N18.9 Chronic kidney disease, unspecified; E87.5 Hyperkalemia; N05.2 Unspecified nephritic syndrome with diffuse membranous glomerulonephritis; E66.9 Obesity, unspecified; E86.9 Volume depletion, unspecified; E78.5 Hyperlipidemia, unspecified; Z68.39 Body mass index [BMI] 39.0-39.9, adult; Z79.82 Long term (current) use of aspirin; Z79.52 Long term (current) use of systemic steroids; Z79.899 Other long term (current) drug therapy
CPT/HCPCS: 36415; 71046; 76775; 80048; 80053; 81001; 82570; 82962; 83735; 84156; 84300; 85025; 86850; 86900; 86901; 87070; 93005; 93010; 96361; 96374; 96375; 99285; J0610; J1815; J3490; J7030; J7512; J7517